=== PATIENT | female | born 1945 | race Caucasian/White ===

== ENCOUNTER → 2017-02-20 | Outpatient (CLI) | payer BC ==
[~2017-02-20] MED LIST: OMEP40CA41 PO; PRED1SUS3 OPR; TRAZ50TA35 PO; TYLOTC500 PO
--- NOTE | 2017-02-21 12:18 | MAMMOGRAPHY REPORT ---
BILATERAL DIGITAL SCREENING MAMMOGRAM WITH CAD: 02/20/2017 CLINICAL HISTORY: Routine screening. Patient has no complaints. TECHNIQUE: Bilateral CC and MLO views were obtained. Current study was also evaluated with a Comput er Aided Detection (CAD) system. COMPARISON: Comparison is made to exams dated: 02/15/2016 mammogram, 02/09/2015 mammogram, 02/03/2014 mammogram, 02/05/2013 ultrasound, 02/05/2013 mammogram, and 01/28/2013 mammogram - [facility]. BREAST COMPOSITION: The tissue of both breasts is heterogeneously dense, which may obscure small ma sses. FINDINGS: There are stable asymmetries bilaterally. No new suspicious mass, architectural distortio n or cluster of microcalcifications is seen. IMPRESSION: ACR BI-RADS CATEGORY 2: BENIGN There is no mammographic evidence of malignancy. A 1 year screening mammogram is recommended. The p atient will receive written notification of the results. Approximately 10% of breast cancers are not detected with mammography. A negative mammographic repor t should not delay biopsy if a clinically suggestive mass is present. Hillary Garcia M.D. ay/:02/20/2017 16:58:11 Systems Qa Analyst: Paris LARSEN(Pablo)([place]), [facility] letter sent: Normal 1/2 BI-RADS Code: ACR BI-RADS Category 2: Benign
== END | disposition home or self-care (01) ==
LOC: C.MAMM 12:16
PROVIDERS: ATTEND Family Medicine
DX: Z12.31 Encounter for screening mammogram for malignant neoplasm of breast (principal)

== ENCOUNTER → 2018-02-19 | Outpatient (CLI) | payer BC, OTHER ==
--- NOTE | 2018-02-20 07:47 | MAMMOGRAPHY REPORT ---
BILATERAL DIGITAL SCREENING MAMMOGRAM TOMOSYNTHESIS WITH CAD: 02/19/2018 CLINICAL HISTORY: Routine screening. TECHNIQUE: Breast tomosynthesis in addition to standard 2D mammography was performed. Current study was also evaluated with a Computer Aided Detection (CAD) system. COMPARISON: Comparison is made to exams dated: 02/20/2017 mammogram, 02/15/2016 mammogram, 02/09/2015 ma mmogram, 02/03/2014 mammogram, 01/28/2013 mammogram, and 01/23/2012 mammogram - [facility]. BREAST COMPOSITION: The tissue of both breasts is heterogeneously dense, which may obscure small mas ses. FINDINGS: Linear scar markers overlie each breast. There are minimal vascular calcifications in the right breast. The glandular pattern is similar to prior mammograms. No new suspicious mass, architec tural distortion or cluster of microcalcifications is seen. IMPRESSION: ACR BI-RADS CATEGORY 2: BENIGN There is no mammographic evidence of malignancy. A 1 year screening mammogram is recommended. The pa tient will receive written notification of the results. Approximately 10% of breast cancers are not detected with mammography. A negative mammographic report should not delay biopsy if a clinically suggestive mass is present. Hillary Garcia M.D. ay/:02/19/2018 15:47:28 Diesel Retrofit Installer: Richard LARSEN(Pablo)([place]), [facility] letter sent: Normal 1/2 BI-RADS Code: ACR BI-RADS Category 2: Benign
== END | disposition home or self-care (01) ==
LOC: C.MAMM 13:41
PROVIDERS: ATTEND Family Medicine
DX: Z12.31 Encounter for screening mammogram for malignant neoplasm of breast (principal)

== ENCOUNTER 2023-06-22 23:14 | Inpatient (IN) ==
--- NOTE | 2023-06-22 23:45 | Emergency Department Note ---
Impression & Plan Acute hyponatremia, Fall, Weakness Admit to the [facility] ED Provider Note NAME: JAMEY ZUNIGA AGE: 77 SEX: F ARRIVES VIA: Walk-In INFORMANT: Patient and her ED PROVIDER(S): Bonnie Reed DO CHIEF COMPLAINT: Fall PLAN: Disposition: Admit to the [facility] Condition: Fair MEDICAL DECISION MAKING: This is a 77-year-old female patient with history of dementia who presents to the emergency department with her after suffering a fall at home. heard the patient fall in her bedroom. Patient complained of discomfort to the left side of her head and her left hip. The explains that she has been getting up to the bathroom more frequently in the past 48 hours and wonders if she has a urinary tract infection. He also describes significant weight loss in the past couple of months. On physical exam, the patient appears to have a droop to her left eye which the states is new. Patient went for CT scan of her brain and cervical spine. These were negative for acute traumatic injuries. Laboratory studies show a normal CBC with no leukocytosis or anemia. Urinalysis showed trace ketones consistent with some mild d ehydration. Chemistry showed hyponatremia with a sodium of 129 and a chloride of 95. Chest x-ray was unremarkable. Patient began to receive IV normal saline bolus. [facility] I felt the patient will require admission to the hospital for sodium replacement and social service evaluation Triage Nursing notes reviewed and agree with them. Additional history obtained from her who is at the bedside Vital Signs: reviewed and remarkable for hypertension and tachycardia Differential diagnosis: UTI, weakness, C-spine injury, head injury ER treatment provided: Cardiac monitoring Twelve-lead EKG IV normal saline bolus Diagnostics interpreted by me: ECG: Normal sinus rhythm at a rate of [address] segment elevation or signs of ischemia. There is no ectopy. QTc was 393 ms. Cardiac Monitoring: Normal sinus rhythm at a rate of 79 Laboratory studies: See below Imaging studies: As per stat rad CT head: See report CT C-spine: See report Chest x-ray: As per my independent interpretation-no acute pulmonary infiltrates or consolidation HPI: 77/F arrives for evaluation of fall. Patient's explains that she has had increased urination over the past couple of days. He was in the kitchen and heard her fall in the bedroom. He believes that she was getting up to go to the bathroom. She complains of pain to the left side of her head, left hip and left knee. The explains that the patient has been more unsteady on her feet over the past 3 days and questions whether or not she may have a urinary tract infection. PAST MEDICAL HISTORY:See Below PAST SURGICAL HISTORY:See Below FAMILY HISTORY:See Below SOCIAL HISTORY:See Below HOME MEDICATIONS:See list ALLERGIES:See list VITALS:See Below PHYSICAL EXAMINATION: HEENT: Head - normocephalic and atraumatic. Pupils are equal, round, and reactive to light. There appears to be a droop to the left eye. Nose - moist nasal mucosa without evidence of trauma or discharge. Mouth - moist buccal mucosa with no trauma to the teeth or signs of malocclusion. Neck: The neck is supple and there is no pain to palpation over the posterior cervical spine and no obvious step-offs or deformities. There is no JVD or tracheal deviation. Chest: There are no signs of deformities, contusions or abrasions to the chest wall. There is no obvious crepitus or paradoxical chest rise. Heart: Regular, rate, and rhythm. There is a normal S1 and S2 with no murmurs, clicks, or gallops appreciated. Lungs: Clear to auscultation bilaterally with no wheezes, rales, or rhonchi. Abdomen: Soft, completely nontender, nondistended, with good bowel sounds. There is no sign of trauma such as contusions, abrasions or penetrations. There are no palpable pulsatile masses or hepatosplenomegaly. There is no guarding, rigidity, or rebound noted. Pelvis: Stable to rock and compression. Patient does have some discomfort over the left ASIS but has range of motion of the left lower extremity and was able to walk without difficulty. Extremities: No obvious trauma, deformities, contusions, or edema. There are easily palpable peripheral pulses. Neuro: The patient is awake and alert and easily able to follow commands. Patient is slow to follow commands and seems demented but this is her baseline. ED COURSE: Times/Reassessments: 2325: Patient was evaluated in room C7. Patient was unable to urinate for nursing staff. Number was placed for continuous cardiac monitoring. The patient was in a normal sinus rhythm at a rate of 98. Laboratory studies were drawn as above. The patient will go for CT scan of the head and cervical spine. She will be catheterized for urine specimen. Bonnie Reed DO Past Med/Surg History Medical History Chronic pain of left knee Chronic SI joint pain GERD (gastroesophageal reflux disease) Hip osteoarthritis Hx of migraine headaches IBS (irritable bowel syndrome) Left hip pain Lumbar compression fracture Lumbar radicular pain Lumbar spondylosis Myofascial pain Osteoarthritis of left knee Osteoporosis Piriformis syndrome of left side Right hip pain Right leg pain Rotator cuff arthropathy Spinal stenosis of lumbar region Surgical History H/O: hysterectomy History of vaginal surgery Social History Smoking Status: Never smoker Second Hand Exposure: No; Do You Dip or Chew Tobacco: No; Tobacco Cessation Education Requested by Patient: No Hx Alcohol Use: Yes Hx Substance Use: No Preferred Language: Mauritanian Communication Ability: Effective Visual Impairment: No Limitations Hearing Ability: Normal Washer [place] Required: No Beliefs That Will Affect Care: None marital status: Current Living Situation: Spouse current occupational status: employed 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 Other Information That Helps Us Care for You: No Feels Safe at Home: Yes Safety Concerns: Feels Safe At This Time Assistive Devices: Walker Allergies Allergies Allergy/AdvReac Type Severity Reaction Status Date / Time codeine AdvReac Intermediate Vomiting Verified 06/22/23 23:52 morphine AdvReac Intermediate Vomiting Verified 06/22/23 23:52 prednisone AdvReac Intermediate Vomiting Verified 06/22/23 23:52 Home Meds Home Medications Medication Instructions Recorded Confirmed calcium carbonate 500 mg calcium 500 mg PO DAILY 11/18/20 06/22/23 (1,250 mg) chewable tablet (Calcium 500) denosumab 60 mg/mL subcutaneous 60 mg subcut DIRECTED 11/18/20 06/22/23 syringe (Prolia) acetaminophen 500 mg tablet 500 mg PO Q6H PRN Pain 12/25/20 06/22/23 (Tylenol Extra Strength) omeprazole 20 mg capsule,delayed 20 mg PO DAILY 12/25/20 06/22/23 release trazodone 50 mg tablet 50 mg PO HS 03/22/23 06/22/23 fluticasone propionate 50 2 spray intranasal DAILY 06/22/23 06/22/23 mcg/actuation nasal spray,suspension lorazepam 0.5 mg tablet 0.5 mg PO BID 06/22/23 06/22/23 polyethylene glycol 3350 17 17 g PO DAILY 06/22/23 06/22/23 gram/dose oral powder (Miralax) sennosides 8.6 mg tablet (Senna 17.2 mg PO BID 06/22/23 06/22/23 Laxative) Results & Data (ED) Vital Signs Vital Signs - 24 hr 06/22/23 23:18 06/23/23 00:05 06/23/23 00:09 Temperature 36.7 C Temperature Source Temporal Artery Scan Pulse Rate 101 H Pulse Rate [Brachial] 76 Pulse Rate from SpO2 Sensor 77 Pulse Rhythm Regular Pulse Rhythm [Brachial] Regular Pulse Strength Normal Pulse Strength [Brachial] Normal Respiratory Rate 18 16 Respiratory Effort / Characteristics Non-Labored Spontaneous Non-Labored Spontaneous Respiratory Depth Normal Normal Respiratory Pattern Regular Regular Blood Pressure 165/94 H Blood Pressure [Right Arm] 155/91 H Blood Pressure Mean 117 Blood Pressure Mean [Right Arm] 112 Blood Pressure Position Sitting Blood Pressure Position [Right Arm] Lying Pulse Oximetry 100 98 97 Oxygen Delivery Method Room Air Room Air Sepsis Recent Fever Within 48 Hours No Sepsis New/Unexplained Change in Mental Status N/A Sepsis Action Taken by Nursing No Action Required 06/23/23 00:10 06/23/23 00:35 06/22/23 23:38 Temperature Temperature Source Pulse Rate 79 Pulse Rate [Brachial] Pulse Rate from SpO2 Sensor 76 Pulse Rhythm Pulse Rhythm [Brachial] Pulse Strength Pulse Strength [Brachial] Respiratory Rate Respiratory Effort / Characteristics Respiratory Depth Respiratory Pattern Blood Pressure Blood Pressure [Right Arm] Blood Pressure Mean Blood Pressure Mean [Right Arm] Blood Pressure Position Blood Pressure Position [Right Arm] Pulse Oximetry 97 Oxygen Delivery Method Room Air Sepsis Recent Fever Within 48 Hours Sepsis New/Unexplained Change in Mental Status Sepsis Action Taken by Nursing Laboratory Data 06/23/23 00:13 06/23/23 00:13 Lab Results 06/23/23 06/23/23 06/23/23 Range/Units 00:13 00:13 00:13 WBC 6.40 (4.8-10.8) K/ul RBC 3.93 L (4.20-5.40) M/uL Hgb 12.7 (12.0-16.0) g/dl Hct 36.4 L (37.0-47.0) % MCV 92.6 (80.0-100.0) fL MCH 32.3 (25.0-34.0) pg MCHC 34.9 (32.0-36.0) g/dL RDW Std Deviation 40.3 (36.4-46.3) fL RDW Coeff of [place] 11.8 (11.5-14.5) % Plt Count 284 (130-400) K/uL MPV 9.5 (9.4-12.4) fL Immature Gran % (Auto) 0.2 % Neut % (Auto) 58.0 % Lymph % (Auto) 27.7 % [place] % (Auto) 11.1 % Eos % (Auto) 2.2 % Baso % (Auto) 0.8 % Neut # (Auto) 3.72 (1.40-6.50) K/uL Lymph # (Auto) 1.77 (1.2-3.4) K/uL [place] # (Auto) 0.71 H (0.11-0.59) K/uL Eos # (Auto) 0.14 (0-0.50) K/uL Baso # (Auto) 0.05 (0-0.2) K/uL Immature Gran # (Auto) 0.01 (0.01-0.20) K/uL Sodium 129 L (136-145) mmol/L Potassium 3.8 (3.5-5.1) mmol/L Chloride 95 L (98-107) mmol/L Carbon Dioxide 26 (21-32) mmol/L Anion Gap 8 (3-11) BUN 12 (6-23) mg/dl Creatinine 0.53 L (0.6-1.2) mg/dl Est Cr Clr Drug Dosing 47.9 ml/min Est GFR ( Amer) 107.6 ml/min Est GFR (Non-Af Amer) 92.9 ml/min BUN/Creatinine Ratio 22.6 H (10-20) Glucose 97 (70-99(Fasting)) mg/dl Calcium 9.7 (8.6-10.3) mg/dl Total Bilirubin 0.5 (0.2-1.0) mg/dl AST 20 (13-39) U/L ALT 12 (7-52) U/L Alkaline Phosphatase 31 L (34-104) U/L Total Protein 7.4 (6.0-8.3) gm/dl Albumin 4.8 (3.4-5.0) gm/dl Globulin 2.6 (2.5-4.0) gm/dl Albumin/Globulin Ratio 1.8 (0.9-2) TSH 2.242 (0.300-4.500) uIu/ml Administered Medications Acetaminophen (Acetaminophen 325 Mg Tab) 650 mg PO Q4H PRN PRN Reason: pain/fever Stop: 07/23/23 04:32 Last Admin: 06/23/23 16:13 Dose: 650 mg Documented By: SHARA Calcium Carbonate (Calcium Carbonate 1250mg Tab) 1,250 mg PO DAILY [facility] Stop: 07/23/23 08:59 Last Admin: 06/24/23 08:08 Dose: 1,250 mg Documented By: Admin: 06/23/23 08:45 Dose: 1,250 mg Documented By: SHARA Fluticasone Propionate (Fluticasone Propionate Na Spr 16 Gm Btl) 2 sprays NA DAILY VEL Stop: 07/23/23 08:59 Last Admin: 06/24/23 08:08 Dose: 2 sprays Documented By: Admin: 06/23/23 08:45 Dose: 2 sprays Documented By: SHARA Heparin Sodium (Porcine) (Heparin Sod 5,000 Unit/0.5 Ml Vial) 5,000 units SQ Q12 VEL Stop: 07/23/23 08:59 Last Admin: 06/24/23 08:09 Dose: 5,000 units Documented By: Admin: 06/23/23 20:20 Dose: 5,000 units Documented By: Admin: 06/23/23 08:50 Dose: Not Given Documented By: SHARA Sodium Chloride (Nss 1000ml) 1,000 mls @ 75 mls/hr IV .[id number] VEL Stop: 07/23/23 04:32 Last Admin: 06/24/23 08:13 Dose: 75 mls/hr Documented By: Infusion: 06/24/23 08:13 Dose: 75 mls/hr Documented By: Admin: 08/04/23 20:18 Dose: 75 mls/hr Documented By: Infusion: 06/23/23 18:21 Dose: 75 mls/hr Documented By: Infusion: 06/23/23 13:49 Dose: 75 mls/hr Documented By: Admin: 06/23/23 05:01 Dose: 75 mls/hr Documented By: SUSAN Lorazepam (Lorazepam 0.5 Mg Tab) 0.5 mg PO BID VEL Stop: 07/23/23 08:59 Last Admin: 06/24/23 08:12 Dose: 0.5 mg Documented By: Admin: 06/23/23 20:19 Dose: 0.5 mg Documented By: Admin: 06/23/23 08:44 Dose: 0.5 mg Documented By: SHARA Pantoprazole Sodium (Pantoprazole 40 Mg Tab) 40 mg PO DAILY VEL Stop: 07/23/23 08:59 Last Admin: 06/24/23 08:08 Dose: 40 mg Documented By: Admin: 06/23/23 08:44 Dose: 40 mg Documented By: SHARA Polyethylene Glycol (Polyethylene (Miralax) 17 Gm Pack) 17 gm PO DAILY VEL Stop: 07/23/23 08:59 Last Admin: 06/24/23 08:08 Dose: 17 gm Documented By: Admin: 06/23/23 08:50 Dose: Not Given Documented By: SHARA Sennosides (Senna 8.6 Mg Tab) 17.2 mg PO BID VEL Stop: 07/23/23 08:59 Last Admin: 06/24/23 08:09 Dose: Not Given Documented By: Admin: 06/23/23 20:19 Dose: 17.2 mg Documented By: Admin: 06/23/23 08:44 Dose: 17.2 mg Documented By: SHARA Sodium Chloride (Sodium Chloride 1 Gm Tablet) 1 gm PO BID VEL Stop: 07/23/23 20:59 Last Admin: 06/24/23 08:08 Dose: 1 gm Documented By: Admin: 06/23/23 20:38 Dose: 1 gm Documented By: LARISSA Trazodone HCl (Trazodone Hcl 50 Mg Tab) 50 mg PO HS VEL Stop: 07/23/23 20:59 Last Admin: 06/23/23 20:19 Dose: 50 mg Documented By: LARISSA Discontinued Medications Sodium Chloride (Nss) 500 mls @ 999 mls/hr IV .Q31M ONE Stop: 06/23/23 01:28 Last Infusion: 06/23/23 02:45 Dose: 0 mls/hr Documented By: Admin: 06/23/23 01:35 Dose: 999 mls/hr Documented By: ROZ Sodium Chloride (Nss) 500 mls @ 125 mls/hr IV .Q4H VEL Stop: 07/23/23 00:59 Last Infusion: 06/23/23 13:50 Dose: 0 mls/hr Documented By: Admin: 06/23/23 02:15 Dose: 125 mls/hr Documented By: ROZ Ioversol (Optiray 320 100ml) 92 ml IV ONCE ONE Stop: 06/23/23 04:20 Last Admin: 06/23/23 04:21 Dose: 92 ml Documented By: ANA Discharge Plan Visit Data Chief Complaint: Hip Pain Stated Complaint: FALL, HIP, HEAD PAIN ED Provider: Bonnie Reed Discharge Problem: Acute hyponatremia, Fall, Weakness Patient Disposition: Admitted As Inpatient Discharge Instructions Interventions: ED Discharge Assessment Last Done: 06/23/23 04:02
[2023-06-23 00:28] LABS: Basophils # (auto) 0.05 K/uL (0-0.2); Basophils % (auto) 0.8 %; Eosinophils # (auto) 0.14 K/uL (0-0.50); Eosinophils % (auto) 2.2 %; Hematocrit (blood only) 36.4 % (37.0-47.0); Hemoglobin 12.7 g/dl (12.0-16.0); Immature Granulocytes # (auto) 0.01 K/uL (0.01-0.20); Immature Granulocytes % (auto) 0.2 %; Lymphocytes # (auto) 1.77 K/uL (1.2-3.4); Lymphocytes % (auto) 27.7 %; Mean Corpuscular Hemoglobin 32.3 pg (25.0-34.0); Mean Corpuscular Hgb Conc 34.9 g/dL (32.0-36.0); Mean Corpuscular Volume 92.6 fL (80.0-100.0); Mean Platelet Volume 9.5 fL (9.4-12.4); Monocytes # (auto) 0.71 K/uL (0.11-0.59); Monocytes % (auto) 11.1 %; Neutrophils # (auto) 3.72 K/uL (1.40-6.50); Platelet Count 284 K/uL (130-400); RDW Coefficient of Variation 11.8 % (11.5-14.5); RDW Standard Deviation 40.3 fL (36.4-46.3); Red Blood Count 3.93 M/uL (4.20-5.40)
[2023-06-23 00:45] LABS: Albumin Globulin Ratio 1.8 (0.9-2); Albumin Level 4.8 gm/dl (3.4-5.0); BUN Creatinine Ratio 22.6 (10-20); Bilirubin,Total 0.5 mg/dl (0.2-1.0); Calcium 9.7 mg/dl (8.6-10.3); Creatinine Clr Calc Pharmacy 47.9 ml/min; Est GFR (African American) 107.6 ml/min; Est GFR (Non-African American) 92.9 ml/min; Globulin 2.6 gm/dl (2.5-4.0); Potassium 3.8 mmol/L (3.5-5.1); Total Protein 7.4 gm/dl (6.0-8.3)
[2023-06-23] MEDS ORDERED: SODIUM CHLORIDE 0.9% 500 ML IV ONE (00:58)
[2023-06-23 00:59] LABS: Appearance Urine Clear (Clear); Bilirubin Urine Negative (Negative); Blood Urine Negative (Negative); Color Urine Yellow; Glucose Urine UA Negative (Negative); Ketones Urine Trace (Negative); Leukocyte Esterase Urine Negative (Negative); Nitrite Urine Negative (Negative); Protein Urine Negative (Negative); Specific Gravity Urine 1.013 (1.000-1.030); Urobilinogen Urine Negative (Negative); pH Urine 7.5 (4.5-7.5)
[2023-06-23] MEDS ORDERED: SODIUM CHLORIDE 0.9% 500 ML IV SCH (01:00)
--- NOTE | 2023-06-23 01:25 | CT Scan Report ---
Exam(s): CT HEAD Without Contrast EXAM: CT Head Without Intravenous Contrast CLINICAL HISTORY: Reason for exam: fall. TECHNIQUE: Axial computed tomography images of the head/brain without intravenous contrast. CTDI is 37.42 mGy and DLP is 1035.33 mGy-cm. Automated exposure control was utilized for the study. A dose lowering technique was utilized adhering to the principles of ALARA. COMPARISON: 09/26/2015. FINDINGS: Brain: Mild generalized brain atrophy. Areas of slight decreased attenuation within the deep white matter suggestive of mild microangiopathic white matter disease. No hemorrhage. Ventricles: Unremarkable. No ventriculomegaly. Bones/joints: Unremarkable. No acute fracture. Soft tissues: Unremarkable. Sinuses: Unremarkable as visualized. No acute sinusitis. Mastoid air cells: Unremarkable as visualized. No mastoid effusion. IMPRESSION: 1. Chronic changes as described. No acute intracranial hemorrhage or space-occupying lesion. 2. No skull fracture. Electronically signed by: Stefanie Lofton MD 06/23/23 01:24 AM
--- NOTE | 2023-06-23 01:27 | CT Scan Report ---
Exam(s): CT C SPINE EXAM: CT Cervical Spine Without Intravenous Contrast CLINICAL HISTORY: Reason for exam: fall. TECHNIQUE: Axial computed tomography images of the cervical spine without intravenous contrast. Automated exposure control was utilized for the study. A dose lowering technique was utilized adhering to the principles of ALARA. COMPARISON: None. FINDINGS: Vertebrae: Multilevel endplate spondylosis with narrowing of disc height, more severe from C3-C7. Normal vertebral body height with no acute fracture. Normal alignment. Discs/spinal canal/neural foramina: Degenerative arthrosis at the anterior C1-C2 articulation. Multilevel bilateral apophyseal hypertrophy contributing to variable degrees of neuroforaminal encroachment. No central canal stenosis. Soft tissues: Unremarkable. Pleural space: Lung apices revealed biapical pleural thickening with subpleural scarring. IMPRESSION: Multilevel degenerative disease as described with no acute fracture or subluxation. Electronically signed by: Stefanie Lofton MD 06/23/23 01:26 AM
--- NOTE | 2023-06-23 03:02 | History & Physical Report ---
Date of Service June 23, 2023 Assessment & Plan (1) Fall: Plan: 77-year-old female past medical significant for moderate dementia as per , GERD, irritable bowel syndrome with constipation and diarrhea, stress incontinence, senile osteoporosis, migraine variant, tympanosclerosis who lives at home with ambulates with a walker and eats regular food as per was brought in because of fall. Fall Probable weakness from hyponatremia and malnutrition PT OT Hyponatremia Sodium 129 Getting gentle fluids we will follow repeat labs in a.m. Malnutrition We will get nutrition consult Persistent abdominal pain History of-year-old bowel syndrome with constipation and diarrhea Has been states mostly she has constipation We will get CT abdomen pelvis Dementia Monitor for delirium GERD On omeprazole DVT prophylaxis Heparin subcu Disposition medical floor CODE STATUS full code only if there is real chance of recovery as per History of Present Illness Chief Complaint: Fall, hyponatremia Primary Care Provider: Michelle Mcdowell, 77-year-old female past medical significant for moderate dementia as per , GERD, irritable bowel syndrome with constipation and diarrhea, stress incontinence, senile osteoporosis, migraine variant, tympanosclerosis who lives at home with ambulates with a walker and eats regular food as per was brought in because of fall. heard patient fell in the kitchen seems hit her head but no loss of consciousness. In the ER imaging studies are okay but labs showed sodium of 129. As per patient has poor appetite and she is losing weight and she lost over 14 pounds in last 6 months. She has a constant abdominal pain. Constipated most of the times and sometimes has to use [employer]. Has been requesting CT scan of abdomen to check for any blockages. No recent fevers, no cough, no headaches. No chest pain or shortness of breath. Has some nausea. Has chronic back pain and hip pains. states she has sundowning and gets confusion and sometimes agitated in the night. was worried about UTI for the fall today but UA came back negative . Allergies Allergy/AdvReac Type Severity Reaction Status Date / Time codeine AdvReac Intermediate Vomiting Verified 06/22/23 23:52 morphine AdvReac Intermediate Vomiting Verified 06/22/23 23:52 prednisone AdvReac Intermediate Vomiting Verified 06/22/23 23:52 Home Medications Medication Instructions Recorded Confirmed Type calcium carbonate 500 mg calcium 500 mg PO DAILY 11/18/20 06/22/23 History (1,250 mg) chewable tablet (Calcium 500) denosumab 60 mg/mL subcutaneous 60 mg subcut DIRECTED 11/18/20 06/22/23 History syringe (Prolia) acetaminophen 500 mg tablet 500 mg PO Q6H PRN Pain 12/25/20 06/22/23 History (Tylenol Extra Strength) omeprazole 20 mg capsule,delayed 20 mg PO DAILY 12/25/20 06/22/23 History release trazodone 50 mg tablet 50 mg PO HS 03/22/23 06/22/23 History fluticasone propionate 50 2 spray intranasal DAILY 06/22/23 06/22/23 History mcg/actuation nasal spray,suspension lorazepam 0.5 mg tablet 0.5 mg PO BID 06/22/23 06/22/23 History polyethylene glycol 3350 17 17 g PO DAILY 06/22/23 06/22/23 History gram/dose oral powder (Miralax) sennosides 8.6 mg tablet (Senna 17.2 mg PO BID 06/22/23 06/22/23 History Laxative) Past Med/Surg History Medical History Chronic pain of left knee Chronic SI joint pain GERD (gastroesophageal reflux disease) Hip osteoarthritis Hx of migraine headaches IBS (irritable bowel syndrome) Left hip pain Lumbar compression fracture Lumbar radicular pain Lumbar spondylosis Myofascial pain Osteoarthritis of left knee Osteoporosis Piriformis syndrome of left side Right hip pain Right leg pain Rotator cuff arthropathy Spinal stenosis of lumbar region Surgical History H/O: hysterectomy History of vaginal surgery Social History Smoking Status: Never smoker Preferred Language: Brazilian Visual Impairment: No Limitations Hearing Ability: Normal Beliefs That Will Affect Care: None marital status: Current Living Situation: Spouse current occupational status: employed 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 Feels Safe at Home: Yes Review of Systems Review of Systems: Unobtainable due to cognitive status Physical Exam Physical Exam: General- Not in distress, Cachectic Head- atraumatic Eyes- PERRLA ENT- oropharynx clear Neck- supple, no JVD, Lungs- clear to auscultation and percussion Heart- regular rhythm; no murmur, no gallop, no rub appreciated Abdomen- normal bowel sounds, soft, diffuse tender no distension Extremities- no pretibial edema, no erythema Neuro- alert, oriented x 2; PERRL, no facial palsy; no dysarthria;obeys simple commands, moves extremities Skin- warm & dry Results & Data Results & Data Vital Signs (Past 12 Hours) Vital Signs Temp Pulse Pulse Resp BP BP Pulse Ox 06/22/23 23:38 06/23/23 00:35 79 06/23/23 00:10 97 06/23/23 00:09 97 06/23/23 00:05 76 16 155/91 H 98 06/22/23 23:18 36.7 C 101 H 18 165/94 H 100 O2 Del Method 06/22/23 23:38 Room Air 06/23/23 00:35 06/23/23 00:10 06/23/23 00:09 06/23/23 00:05 Room Air 06/22/23 23:18 Room Air Diagnostic Findings Laboratory Results WBC 6.40 K/ul (4.8-10.8) 06/23/23 00:13 RBC 3.93 M/uL (4.20-5.40) L 06/23/23 00:13 Hgb 12.7 g/dl (12.0-16.0) 06/23/23 00:13 Hct 36.4 % (37.0-47.0) L 06/23/23 00:13 MCV 92.6 fL (80.0-100.0) 06/23/23 00:13 MCH 32.3 pg (25.0-34.0) 06/23/23 00:13 MCHC 34.9 g/dL (32.0-36.0) 06/23/23 00:13 RDW Std Deviation 40.3 fL (36.4-46.3) 06/23/23 00:13 RDW Coeff of [place] 11.8 % (11.5-14.5) 06/23/23 00:13 Plt Count 284 K/uL (130-400) 06/23/23 00:13 MPV 9.5 fL (9.4-12.4) 06/23/23 00:13 Immature Gran % (Auto) 0.2 % 06/23/23 00:13 Neut % (Auto) 58.0 % 06/23/23 00:13 Lymph % (Auto) 27.7 % 06/23/23 00:13 Sac % (Auto) 11.1 % 06/23/23 00:13 Eos % (Auto) 2.2 % 06/23/23 00:13 Baso % (Auto) 0.8 % 06/23/23 00:13 Neut # (Auto) 3.72 K/uL (1.40-6.50) 06/23/23 00:13 Lymph # (Auto) 1.77 K/uL (1.2-3.4) 06/23/23 00:13 Sac # (Auto) 0.71 K/uL (0.11-0.59) H 06/23/23 00:13 Eos # (Auto) 0.14 K/uL (0-0.50) 06/23/23 00:13 Baso # (Auto) 0.05 K/uL (0-0.2) 06/23/23 00:13 Immature Gran # (Auto) 0.01 K/uL (0.01-0.20) 06/23/23 00:13 Sodium 129 mmol/L (136-145) L 06/23/23 00:13 Potassium 3.8 mmol/L (3.5-5.1) 06/23/23 00:13 Chloride 95 mmol/L (98-107) L 06/23/23 00:13 Carbon Dioxide 26 mmol/L (21-32) 06/23/23 00:13 Anion Gap 8 (3-11) 06/23/23 00:13 BUN 12 mg/dl (6-23) 06/23/23 00:13 Creatinine 0.53 mg/dl (0.6-1.2) L 06/23/23 00:13 Est Cr Clr Drug Dosing 47.9 ml/min 06/23/23 00:13 Est GFR ( Amer) 107.6 ml/min 06/23/23 00:13 Est GFR (Non-Af Amer) 92.9 ml/min 06/23/23 00:13 BUN/Creatinine Ratio 22.6 (10-20) H 06/23/23 00:13 Glucose 97 mg/dl (70-99(Fasting)) 06/23/23 00:13 Calcium 9.7 mg/dl (8.6-10.3) 06/23/23 00:13 Total Bilirubin 0.5 mg/dl (0.2-1.0) 06/23/23 00:13 AST 20 U/L (13-39) 06/23/23 00:13 ALT 12 U/L (7-52) 06/23/23 00:13 Alkaline Phosphatase 31 U/L (34-104) L 06/23/23 00:13 Total Protein 7.4 gm/dl (6.0-8.3) 06/23/23 00:13 Albumin 4.8 gm/dl (3.4-5.0) 06/23/23 00:13 Globulin 2.6 gm/dl (2.5-4.0) 06/23/23 00:13 Albumin/Globulin Ratio 1.8 (0.9-2) 06/23/23 00:13 TSH 2.242 uIu/ml (0.300-4.500) 06/23/23 00:13 Urine Color Yellow 06/23/23 Unknown Urine Appearance Clear (Clear) 06/23/23 Unknown Urine pH 7.5 (4.5-7.5) 06/23/23 Unknown Ur Specific [place] 1.013 (1.000-1.030) 06/23/23 Unknown Urine Protein Negative (Negative) 06/23/23 Unknown Urine Glucose (UA) Negative (Negative) 06/23/23 Unknown Urine Ketones Trace (Negative) H 06/23/23 Unknown Urine Blood Negative (Negative) 06/23/23 Unknown Urine Nitrite Negative (Negative) 06/23/23 Unknown Urine Bilirubin Negative (Negative) 06/23/23 Unknown Urine Urobilinogen Negative (Negative) 06/23/23 Unknown Ur Leukocyte Esterase Negative (Negative) 06/23/23 Unknown Impressions Cervical Spine CT 06/22/23 23:38 Exam(s): CT C SPINE EXAM: CT Cervical Spine Without Intravenous Contrast CLINICAL HISTORY: Reason for exam: fall. TECHNIQUE: Axial computed tomography images of the cervical spine without intravenous contrast. Automated exposure control was utilized for the study. A dose lowering technique was utilized adhering to the principles of ALARA. COMPARISON: None. FINDINGS: Vertebrae: Multilevel endplate spondylosis with narrowing of disc height, more severe from C3-C7. Normal vertebral body height with no acute fracture. Normal alignment. Discs/spinal canal/neural foramina: Degenerative arthrosis at the anterior C1-C2 articulation. Multilevel bilateral apophyseal hypertrophy contributing to variable degrees of neuroforaminal encroachment. No central canal stenosis. Soft tissues: Unremarkable. Pleural space: Lung apices revealed biapical pleural thickening with subpleural scarring. IMPRESSION: Multilevel degenerative disease as described with no acute fracture or subluxation. Electronically signed by: Stefanie Lofton MD 06/23/23 01:[address] 06/22/23 23:38 Exam(s): CT HEAD Without Contrast EXAM: CT Head Without Intravenous Contrast CLINICAL HISTORY: Reason for exam: fall. TECHNIQUE: Axial computed tomography images of the head/brain without intravenous contrast. CTDI is 37.42 mGy and DLP is 1035.33 mGy-cm. Automated exposure control was utilized for the study. A dose lowering technique was utilized adhering to the principles of ALARA. COMPARISON: 09/26/2015. FINDINGS: Brain: Mild generalized brain atrophy. Areas of slight decreased attenuation within the deep white matter suggestive of mild microangiopathic white matter disease. No hemorrhage. Ventricles: Unremarkable. No ventriculomegaly. Bones/joints: Unremarkable. No acute fracture. Soft tissues: Unremarkable. Sinuses: Unremarkable as visualized. No acute sinusitis. Mastoid air cells: Unremarkable as visualized. No mastoid effusion. IMPRESSION: 1. Chronic changes as described. No acute intracranial hemorrhage or space-occupying lesion. 2. No skull fracture. Electronically signed by: Stefanie Lofton MD 06/23/23 01:24 AM ECG Additional Comments: ECG normal sinus rhythm rate of 76. T wave inversions in lead III Code Status & VTE Plan VTE Prophylaxis Plan VTE Prophylaxis will be ordered: Yes
[2023-06-23] MEDS ORDERED: OPTIRAY 320 100ml IV ONE (04:19)
[2023-06-23] MEDS ORDERED: POLYETHYLENE (MIRALAX) 17 GM PACK PO PRN (04:33)
[2023-06-23] MEDS: SODIUM CHLORIDE 0.9% 1000ML 1,000 ML IV SCH ×2 (05:01→20:18)
--- NOTE | 2023-06-23 06:16 | CT Scan Report ---
CT OF THE ABDOMEN AND PELVIS WITH CONTRAST CLINICAL HISTORY: Persistent abdominal pain and constipation. COMPARISON STUDY: CT of the pelvis October 23, 2022. TECHNIQUE: Following IV administration of 92 mL of Optiray, axial images of the abdomen and pelvis we re obtained from the lung bases to the proximal femurs. Images were reviewed in the axial, sagittal, and coronal planes. IV contrast was administered without complication. Automated exposure control wa s utilized for the study. A dose lowering technique was utilized adhering to the principles of ALARA . CT DOSE: 274.73 mGy.cm FINDINGS: Calcified granuloma within the right lower lobe is present. No pneumatosis, free air or por nelly venous gas is present. Subcentimeter segment 7 hepatic lesion favors a cyst. This is unchanged. T here are no suspicious hepatic lesions. There is no biliary or pancreatic ductal dilatation. Spleen, adrenal glands and pancreas are unremarkable. Moderate right hydronephrosis is similar to CT October 23, 2022. Punctate layering calcifications within the right renal pelvis are present. No ureteral dinorah culi are identified. There is mild left collecting system dilatation. There is no evidence for a umberto l obstruction. There is no ascites. No lymphadenopathy. No fluid collections are present. Old mild L2 compression fracture is present. Multilevel degenerative changes are unchanged within the lumbar spi ne since prior CT. No acute fractures are identified. The appendix is not visualized. The amount of s tool is within normal limits. IMPRESSION: 1. No bowel obstruction. No bowel wall thickening. Amount of stool within normal limits. 2. No change in moderate right hydronephrosis since prior CT. 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 Punctate layering calcifications within the right renal pelvis. No obstructing calculi. 3. Mild left collecting system dilatation. ACT 112: Negative or not required by law. Electronically signed by: Jaylon Donald M.D. 06/23/2023 6:14 AM
--- NOTE | 2023-06-23 06:57 | XRay Report ---
XR chest 1V portable CLINICAL HISTORY: weakness COMPARISON STUDY: Chest CT and chest radiograph March 31, 2007. FINDINGS: Lung volumes are normal. There is no consolidation to suggest pneumonia. Biapical opacities favor scarring. There is no pneumothorax or pleural effusion. Cardiac size is normal. Mediastinal co ntours are normal. There is no evidence for pulmonary edema. IMPRESSION: No acute cardiopulmonary findings. ACT 112: Negative or not required by law. Electronically signed by: Jaylon Donald M.D. 06/23/2023 6:56 AM
[2023-06-23 07:24] LABS: Basophils # (auto) 0.07 K/uL (0-0.2); Eosinophils # (auto) 0.08 K/uL (0-0.50); Eosinophils % (auto) 1.2 %; Hematocrit (blood only) 38.4 % (37.0-47.0); Hemoglobin 13.5 g/dl (12.0-16.0); Immature Granulocytes # (auto) 0.01 K/uL (0.01-0.20); Immature Granulocytes % (auto) 0.1 %; Lymphocytes # (auto) 1.74 K/uL (1.2-3.4); Lymphocytes % (auto) 25.4 %; Mean Corpuscular Hemoglobin 31.7 pg (25.0-34.0); Mean Corpuscular Hgb Conc 35.2 g/dL (32.0-36.0); Mean Corpuscular Volume 90.1 fL (80.0-100.0); Monocytes # (auto) 0.63 K/uL (0.11-0.59); Monocytes % (auto) 9.2 %; Neutrophils # (auto) 4.33 K/uL (1.40-6.50); Neutrophils % (auto) 63.1 %; Platelet Count 295 K/uL (130-400); RDW Coefficient of Variation 11.8 % (11.5-14.5); RDW Standard Deviation 38.8 fL (36.4-46.3); Red Blood Count 4.26 M/uL (4.20-5.40); White Blood Count 6.86 K/ul (4.8-10.8)
[2023-06-23 07:35] LABS: Calcium 8.9 mg/dl (8.6-10.3); Magnesium 1.8 mg/dl (1.7-2.4); Potassium 3.5 mmol/L (3.5-5.1)
[2023-06-23 07:41] LABS: BUN Creatinine Ratio 16.7 (10-20); Creatinine Clr Calc Pharmacy 66.3 ml/min; Est GFR (African American) 116.2 ml/min; Est GFR (Non-African American) 100.3 ml/min
[2023-06-23] MEDS: PANTOprazole 40 MG TAB PO SCH (08:44)
[2023-06-23] MEDS: SENNA 8.6 MG TAB PO SCH ×2 (08:44→20:19)
[2023-06-23] MEDS: LORazepam 0.5 MG TAB PO SCH ×2 (08:44→20:19)
[2023-06-23] MEDS: CALCIUM CARBONATE 1250MG TAB PO SCH (08:45)
[2023-06-23] MEDS: FLUTICASONE PROPIONATE NA SPR 16 GM BTL SCH (08:45)
[2023-06-23] MEDS: POLYETHYLENE (MIRALAX) 17 GM PACK PO SCH (08:50)
[2023-06-23] MEDS: HEPARIN SOD 5,000 UNIT/0.5 ML VIAL SQ SCH ×2 (08:50→20:20)
[2023-06-23] MEDS: ACETAMINOPHEN 325 MG TAB PO PRN (16:13)
--- NOTE | 2023-06-23 16:50 | Hospitalist Progress Note ---
Date of Service June 23, 2023 Assessment & Plan (1) Fall: Plan: 77-year-old female past medical significant for moderate dementia as per , GERD, irritable bowel syndrome with constipation and diarrhea, stress incontinence, senile osteoporosis, migraine variant, tympanosclerosis who lives at home with ambulates with a walker and eats regular food as per was brought in because of fall. Fall Probable weakness from hyponatremia and malnutrition PT OT Hyponatremia-likely secondary to poor intake Sodium 129 Getting gentle fluids we will follow repeat labs in a.m. Remains hyponatremic with sodium level of 129 Has been getting small doses of IV fluid with normal saline Will give sodium tablet Malnutrition We will get nutrition consult Persistent abdominal pain History of-year-old bowel syndrome with constipation and diarrhea Has been states mostly she has constipation We will get CT abdomen pelvis-mild collecting system dilatation with moderate right hydronephrosis as before No acute pain Dementia Monitor for delirium Pleasantly confused but no acute delirium GERD On omeprazole DVT prophylaxis Heparin subcu Disposition medical floor CODE STATUS full code only if there is real chance of recovery as per Admission and Anticipated Discharge Date Admission Date: June 23, 2023 Subjective 06/23/2023 The patient was seen and examined in medical floor She remains pleasantly confused Does not have any acute distress at rest and denies any significant symptoms Review of Systems Review of Systems: Unobtainable due to cognitive status Physical Exam Physical Exam: Sitting on a chair without any acute distress Constitutional: + ill appearing and average body habitus Eyes: PERRL, conjunctivae normal, anicteric sclerae ENMT: external ear and nose normal, oropharynx normal Neck: trachea midline, no thyromegaly Respiratory: no respiratory distress Auscultation: lungs clear to auscultation bilaterally Cardiovascular: Rate/Rhythm: regular rate and regular rhythm; not tachycardic Heart Sounds: normal S1, normal S2 and + murmur Extremities: no edema Gastrointestinal (Abdomen): Inspection/Auscultation: normal bowel sounds; abdomen not distended Percussion/Palpation: abdomen soft; abdomen nontender Musculoskeletal: No acute arthritis in any joint Neurologic: Alert and awake. Pleasantly confused. No focal neurodeficit Lymphatic: no cervical or axillary lymphadenopathy Results & Data Results & Data Vital Signs (Past 12 Hours) Vital Signs Temp Pulse Resp BP Pulse Ox O2 Del Method 06/23/23 15:16 36.7 C 97 H 18 143/98 H 97 Room Air 06/23/23 07:31 37.1 C 97 H 18 169/97 H 97 Room Air Laboratory Results Short CBC 06/23/23 06/23/23 Range/Units 00:13 07:09 WBC 6.40 6.86 (4.8-10.8) K/ul Hgb 12.7 13.5 (12.0-16.0) g/dl Hct 36.4 L 38.4 (37.0-47.0) % Plt Count 284 295 (130-400) K/uL BMP 06/23/23 06/23/23 00:13 07:09 Sodium 129 L 129 L Potassium 3.8 3.5 Chloride 95 L 98 Carbon Dioxide 26 22 BUN 12 7 Creatinine 0.53 L 0.42 L Glucose 97 106 H Calcium 9.7 8.9 Liver Function 06/23/23 Range/Units 00:13 Total Bilirubin 0.5 (0.2-1.0) mg/dl AST 20 (13-39) U/L ALT 12 (7-52) U/L Alkaline Phosphatase 31 L (34-104) U/L Albumin 4.8 (3.4-5.0) gm/dl Urine 06/23/23 Range/Units Unknown Urine Color Yellow Urine Appearance Clear (Clear) Urine pH 7.5 (4.5-7.5) Ur Specific [place] 1.013 (1.000-1.030) Urine Protein Negative (Negative) Urine Glucose (UA) Negative (Negative) Medications Administered Current Inpatient Medications Acetaminophen (Acetaminophen 325 Mg Tab) 650 mg PO Q4H PRN PRN Reason: pain/fever Stop: 07/23/23 04:32 Last Admin: 06/23/23 16:13 Dose: 650 mg Calcium Carbonate (Calcium Carbonate 1250mg Tab) 1,250 mg PO DAILY VEL Stop: 07/23/23 08:59 Last Admin: 06/23/23 08:45 Dose: 1,250 mg Fluticasone Propionate (Fluticasone Propionate Na Spr 16 Gm Btl) 2 sprays NA DAILY VEL Stop: 07/23/23 08:59 Last Admin: 06/23/23 08:45 Dose: 2 sprays Heparin Sodium (Porcine) (Heparin Sod 5,000 Unit/0.5 Ml Vial) 5,000 units SQ Q12 VEL Stop: 07/23/23 08:59 Last Admin: 06/23/23 08:50 Dose: Not Given Sodium Chloride (Nss 1000ml) 1,000 mls @ 75 mls/hr IV .[id number] VEL Stop: 07/23/23 04:32 Last Infusion: 06/23/23 13:49 Dose: 75 mls/hr Lorazepam (Lorazepam 0.5 Mg Tab) 0.5 mg PO BID VEL Stop: 07/23/23 08:59 Last Admin: 06/23/23 08:44 Dose: 0.5 mg Pantoprazole Sodium (Pantoprazole 40 Mg Tab) 40 mg PO DAILY VEL Stop: 07/23/23 08:59 Last Admin: 06/23/23 08:44 Dose: 40 mg Polyethylene Glycol (Polyethylene (Miralax) 17 Gm Pack) 17 gm PO DAILY PRN PRN Reason: Constipation Stop: 07/23/23 04:32 Polyethylene Glycol (Polyethylene (Miralax) 17 Gm Pack) 17 gm PO DAILY VEL Stop: 07/23/23 08:59 Last Admin: 06/23/23 08:50 Dose: Not Given Sennosides (Senna 8.6 Mg Tab) 17.2 mg PO BID VEL Stop: 07/23/23 08:59 Last Admin: 06/23/23 08:44 Dose: 17.2 mg Trazodone HCl (Trazodone Hcl 50 Mg Tab) 50 mg PO HS VEL Stop: 07/23/23 20:59
[2023-06-23] MEDS: traZODone HCL 50 MG TAB PO SCH (20:19)
[2023-06-23] MEDS: SODIUM CHLORIDE 1 GM TABLET PO SCH (20:38)
--- NOTE | 2023-06-23 23:21 | Electrocardiogram Report ---
Test Reason : Blood Pressure : / mmHG Vent. Rate : 076 BPM Atrial Rate : 076 BPM P-R Int : 162 ms QRS Dur : 070 ms QT Int : 350 ms P-R-T Axes : 030 010 001 degrees QTc Int : 393 ms Normal sinus rhythm Minimal voltage criteria for LVH, may be normal variant Borderline ECG When compared with ECG of 16-JUL-2009 13:38, Questionable change in QRS axis T wave inversion now evident in Inferior leads Confirmed by Odilon Gruber ([id number]) on 06/23/2023 11:21:08 PM Referred By: REFERRED SELF Confirmed By:Odilon Gruber
[2023-06-24 07:28] LABS: BUN Creatinine Ratio 16.2 (10-20); Calcium 8.9 mg/dl (8.6-10.3); Creatinine Clr Calc Pharmacy 75.3 ml/min; Est GFR (African American) 121.2 ml/min; Est GFR (Non-African American) 104.5 ml/min; Potassium 3.5 mmol/L (3.5-5.1)
[2023-06-24] MEDS: POLYETHYLENE (MIRALAX) 17 GM PACK PO SCH (08:08)
[2023-06-24] MEDS: PANTOprazole 40 MG TAB PO SCH (08:08)
[2023-06-24] MEDS: FLUTICASONE PROPIONATE NA SPR 16 GM BTL SCH (08:08)
[2023-06-24] MEDS: SODIUM CHLORIDE 1 GM TABLET PO SCH ×2 (08:08→20:20)
[2023-06-24] MEDS: CALCIUM CARBONATE 1250MG TAB PO SCH (08:08)
[2023-06-24] MEDS: SENNA 8.6 MG TAB PO SCH ×2 (08:09→20:20)
[2023-06-24] MEDS: HEPARIN SOD 5,000 UNIT/0.5 ML VIAL SQ SCH ×2 (08:09→20:20)
[2023-06-24] MEDS: LORazepam 0.5 MG TAB PO SCH ×2 (08:12→20:19)
[2023-06-24] MEDS: SODIUM CHLORIDE 0.9% 1000ML 1,000 ML IV SCH ×2 (08:13→23:45)
--- NOTE | 2023-06-24 12:49 | Hospitalist Progress Note ---
Date of Service June 24, 2023 Assessment & Plan (1) Fall: Plan: 77-year-old female past medical significant for moderate dementia as per , GERD, irritable bowel syndrome with constipation and diarrhea, stress incontinence, senile osteoporosis, migraine variant, tympanosclerosis who lives at home with ambulates with a walker and eats regular food as per was brought in because of fall. Fall Probable weakness from hyponatremia and malnutrition Continue PT & OT Hyponatremia-likely secondary to poor intake and drinking too much water for the last few days or weeks as per the Has been drinking much water for the last few days at home Sodium 129 on admission Remains hyponatremic with sodium level of 129 Has been getting small doses of IV fluid with normal saline Will give sodium tablet Sodium level remains low at 126 We will monitor PRP if is still low we will get nephrology involved and the patient may need Lasix with normal saline infusion Severe malnutritionin the setting of multiple chronic illnesses (dementia, IBS, diarrhea) We will get nutrition consult Has been eating and drinking reasonably in the hospital Persistent abdominal pain History of-year-old bowel syndrome with constipation and diarrhea Has been states mostly she has constipation We will get CT abdomen pelvis-mild collecting system dilatation with moderate right hydronephrosis as before No acute pain Dementia Monitor for delirium Pleasantly confused but no acute delirium GERD On omeprazole DVT prophylaxis Heparin subcu Disposition medical floor CODE STATUS full code only if there is real chance of recovery as per Discussed with the in detail Admission and Anticipated Discharge Date Admission Date: June 23, 2023 Subjective 06/23/2023 The patient was seen and examined in medical floor She remains pleasantly confused Does not have any acute distress at rest and denies any significant symptoms 06/24/2023 The patient was seen and examined in medical floor in presence of the She remains pleasantly confused but does not have any acute distress Sodium remains low at 126 She has been eating and drinking reasonably Review of Systems Review of Systems: Unobtainable due to cognitive status Physical Exam Physical Exam: Sitting on a chair without any acute distress Constitutional: + ill appearing and average body habitus Eyes: PERRL, conjunctivae normal, anicteric sclerae ENMT: external ear and nose normal, oropharynx normal Neck: trachea midline, no thyromegaly Respiratory: no respiratory distress Auscultation: lungs clear to auscultation bilaterally Cardiovascular: Rate/Rhythm: regular rate and regular rhythm; not tachycardic Heart Sounds: normal S1, normal S2 and + murmur Extremities: no edema Gastrointestinal (Abdomen): Inspection/Auscultation: normal bowel sounds; abdomen not distended Percussion/Palpation: abdomen soft; abdomen nontender Musculoskeletal: No acute arthritis involving any joint Neurologic: Alert and awake. Pleasantly confused. Generally weak Lymphatic: no cervical or axillary lymphadenopathy Results & Data Results & Data Vital Signs (Past 12 Hours) Vital Signs Temp Pulse Resp BP Pulse Ox O2 Del Method 06/24/23 08:36 Room Air 06/24/23 07:42 36.5 C 87 16 150/86 H 98 Room Air Laboratory Results BMP 06/24/23 06:20 Sodium 126 L Potassium 3.5 Chloride 93 L Carbon Dioxide 25 BUN 6 Creatinine 0.37 L Glucose 106 H Calcium 8.9 Medications Administered Current Inpatient Medications Acetaminophen (Acetaminophen 325 Mg Tab) 650 mg PO Q4H PRN PRN Reason: pain/fever Stop: 07/23/23 04:32 Last Admin: 06/23/23 16:13 Dose: 650 mg Calcium Carbonate (Calcium Carbonate 1250mg Tab) 1,250 mg PO DAILY VEL Stop: 07/23/23 08:59 Last Admin: 06/24/23 08:08 Dose: 1,250 mg Fluticasone Propionate (Fluticasone Propionate Na Spr 16 Gm Btl) 2 sprays NA DAILY VEL Stop: 07/23/23 08:59 Last Admin: 06/24/23 08:08 Dose: 2 sprays Heparin Sodium (Porcine) (Heparin Sod 5,000 Unit/0.5 Ml Vial) 5,000 units SQ Q12 VEL Stop: 07/23/23 08:59 Last Admin: 06/24/23 08:09 Dose: 5,000 units Sodium Chloride (Nss 1000ml) 1,000 mls @ 75 mls/hr IV .[id number] VEL Stop: 07/23/23 04:32 Last Admin: 06/24/23 08:13 Dose: 75 mls/hr Lorazepam (Lorazepam 0.5 Mg Tab) 0.5 mg PO BID VEL Stop: 07/23/23 08:59 Last Admin: 06/24/23 08:12 Dose: 0.5 mg Pantoprazole Sodium (Pantoprazole 40 Mg Tab) 40 mg PO DAILY VEL Stop: 07/23/23 08:59 Last Admin: 06/24/23 08:08 Dose: 40 mg Polyethylene Glycol (Polyethylene (Miralax) 17 Gm Pack) 17 gm PO DAILY PRN PRN Reason: Constipation Stop: 07/23/23 04:32 Polyethylene Glycol (Polyethylene (Miralax) 17 Gm Pack) 17 gm PO DAILY VEL Stop: 07/23/23 08:59 Last Admin: 06/24/23 08:08 Dose: 17 gm Sennosides (Senna 8.6 Mg Tab) 17.2 mg PO BID VEL Stop: 07/23/23 08:59 Last Admin: 06/24/23 08:09 Dose: Not Given Sodium Chloride (Sodium Chloride 1 Gm Tablet) 1 gm PO BID VEL Stop: 07/23/23 20:59 Last Admin: 06/24/23 08:08 Dose: 1 gm Trazodone HCl (Trazodone Hcl 50 Mg Tab) 50 mg PO HS VEL Stop: 07/23/23 20:59 Last Admin: 06/23/23 20:19 Dose: 50 mg
[2023-06-24] MEDS: ACETAMINOPHEN 325 MG TAB PO PRN (19:22)
[2023-06-24] MEDS: traZODone HCL 50 MG TAB PO SCH (20:19)
[2023-06-25 06:08] LABS: BUN Creatinine Ratio 19.6 (10-20); Calcium 8.2 mg/dl (8.6-10.3); Creatinine Clr Calc Pharmacy 54.6 ml/min; Est GFR (Non-African American) 94.1 ml/min; Potassium 3.3 mmol/L (3.5-5.1)
[2023-06-25] MEDS: POLYETHYLENE (MIRALAX) 17 GM PACK PO SCH (08:19)
[2023-06-25] MEDS: FLUTICASONE PROPIONATE NA SPR 16 GM BTL SCH (08:19)
[2023-06-25] MEDS: PANTOprazole 40 MG TAB PO SCH (08:19)
[2023-06-25] MEDS: CALCIUM CARBONATE 1250MG TAB PO SCH (08:19)
[2023-06-25] MEDS: SODIUM CHLORIDE 1 GM TABLET PO SCH ×2 (08:19→20:27)
[2023-06-25] MEDS: SENNA 8.6 MG TAB PO SCH ×2 (08:19→20:27)
[2023-06-25] MEDS: HEPARIN SOD 5,000 UNIT/0.5 ML VIAL SQ SCH ×2 (08:19→20:27)
[2023-06-25] MEDS: LORazepam 0.5 MG TAB PO SCH ×2 (08:23→20:29)
[2023-06-25] MEDS: SODIUM CHLORIDE 0.9% 1000ML 1,000 ML IV SCH (11:46)
[2023-06-25] MEDS: ACETAMINOPHEN 325 MG TAB PO PRN ×3 (12:08→20:26)
--- NOTE | 2023-06-25 14:25 | Hospitalist Progress Note ---
Date of Service June 25, 2023 Assessment & Plan (1) Fall: Plan: 77-year-old female past medical significant for moderate dementia as per , GERD, irritable bowel syndrome with constipation and diarrhea, stress incontinence, senile osteoporosis, migraine variant, tympanosclerosis who lives at home with ambulates with a walker and eats regular food as per was brought in because of fall. Fall Probable weakness from hyponatremia and malnutrition Continue PT & OT Appreciate input and recommendation- She will need to go to rehab Hyponatremia-likely secondary to poor intake and drinking too much water for the last few days or weeks as per the Has been drinking much water for the last few days at home Sodium 129 on admission Remains hyponatremic with sodium level of 129 Has been getting small doses of IV fluid with normal saline Will give sodium tablet Sodium level remains low at 126 We will monitor PRP if is still low we will get nephrology involved and the patient may need Lasix with normal saline infusion We will discontinue infusion sodium level has gone up to 130 Advised to take a little extra salt with her meals Severe malnutritionin the setting of multiple chronic illnesses (dementia, IBS, diarrhea) We will get nutrition consult Has been eating and drinking reasonably in the hospital Awaiting nutrition evaluation and recommendation Persistent abdominal pain History of-year-old bowel syndrome with constipation and diarrhea Has been states mostly she has constipation We will get CT abdomen pelvis-mild collecting system dilatation with moderate right hydronephrosis as before No acute pain Dementia Monitor for delirium Pleasantly confused but no acute delirium GERD On omeprazole DVT prophylaxis Heparin subcu Disposition medical floor CODE STATUS full code only if there is real chance of recovery as per Discussed with the in detail Admission and Anticipated Discharge Date Admission Date: June 23, 2023 Subjective 06/23/2023 The patient was seen and examined in medical floor She remains pleasantly confused Does not have any acute distress at rest and denies any significant symptoms 06/24/2023 The patient was seen and examined in medical floor in presence of the She remains pleasantly confused but does not have any acute distress Sodium remains low at 126 She has been eating and drinking reasonably 06/25/2023 The patient was seen and examined in medical floor in presence of the She has been feeling much better today and has been eating and drinking reasonably Sodium level has gone up to 130 Review of Systems Review of Systems: All systems reviewed and are unremarkable except as noted below Physical Exam Physical Exam: Lying in bed comfortably Constitutional: + ill appearing and average body habitus Eyes: PERRL, conjunctivae normal, anicteric sclerae ENMT: external ear and nose normal, oropharynx normal Neck: trachea midline, no thyromegaly Respiratory: no respiratory distress Auscultation: lungs clear to auscultation bilaterally Cardiovascular: Rate/Rhythm: regular rate and regular rhythm; not tachycardic Heart Sounds: normal S1, normal S2 and + murmur Extremities: no edema Gastrointestinal (Abdomen): Inspection/Auscultation: normal bowel sounds; abdomen not distended Percussion/Palpation: abdomen soft; abdomen nontender Musculoskeletal: No acute arthritis involving any joint Neurologic: Alert and awake. Pleasantly confused. Generally weak and lethargic Lymphatic: no cervical or axillary lymphadenopathy Results & Data Results & Data Vital Signs (Past 12 Hours) Vital Signs Temp Pulse Resp BP Pulse Ox O2 Del Method 06/25/23 11:18 Room Air 06/25/23 07:37 36.4 C L 83 16 144/84 H 96 Room Air Laboratory Results [facility] 06/25/23 05:15 Sodium 130 L Potassium 3.3 L Chloride 102 Carbon Dioxide 21 BUN 10 Creatinine 0.51 L Glucose 86 Calcium 8.2 L Medications Administered Current Inpatient Medications Acetaminophen (Acetaminophen 325 Mg Tab) 650 mg PO Q4H PRN PRN Reason: pain/fever Stop: 07/23/23 04:32 Last Admin: 06/25/23 12:08 Dose: 650 mg Calcium Carbonate (Calcium Carbonate 1250mg Tab) 1,250 mg PO DAILY VEL Stop: 07/23/23 08:59 Last Admin: 06/25/23 08:19 Dose: 1,250 mg Fluticasone Propionate (Fluticasone Propionate Na Spr 16 Gm Btl) 2 sprays NA DAILY VEL Stop: 07/23/23 08:59 Last Admin: 06/25/23 08:19 Dose: 2 sprays Heparin Sodium (Porcine) (Heparin Sod 5,000 Unit/0.5 Ml Vial) 5,000 units SQ Q12 VEL Stop: 07/23/23 08:59 Last Admin: 06/25/23 08:19 Dose: 5,000 units Lorazepam (Lorazepam 0.5 Mg Tab) 0.5 mg PO BID VEL Stop: 07/23/23 08:59 Last Admin: 06/25/23 08:23 Dose: 0.5 mg Pantoprazole Sodium (Pantoprazole 40 Mg Tab) 40 mg PO DAILY VEL Stop: 07/23/23 08:59 Last Admin: 06/25/23 08:19 Dose: 40 mg Polyethylene Glycol (Polyethylene (Miralax) 17 Gm Pack) 17 gm PO DAILY PRN PRN Reason: Constipation Stop: 07/23/23 04:32 Polyethylene Glycol (Polyethylene (Miralax) 17 Gm Pack) 17 gm PO DAILY VEL Stop: 07/23/23 08:59 Last Admin: 06/25/23 08:19 Dose: 17 gm Sennosides (Senna 8.6 Mg Tab) 17.2 mg PO BID VEL Stop: 07/23/23 08:59 Last Admin: 06/25/23 08:19 Dose: 17.2 mg Sodium Chloride (Sodium Chloride 1 Gm Tablet) 1 gm PO BID VEL Stop: 07/23/23 20:59 Last Admin: 06/25/23 08:19 Dose: 1 gm Trazodone HCl (Trazodone Hcl 50 Mg Tab) 50 mg PO HS VEL Stop: 07/23/23 20:59 Last Admin: 06/24/23 20:19 Dose: 50 mg
[2023-06-25] MEDS: traZODone HCL 50 MG TAB PO SCH (20:28)
[2023-06-26 07:17] LABS: Basophils # (auto) 0.09 K/uL (0-0.2); Basophils % (auto) 1.2 %; Eosinophils % (auto) 1.3 %; Hematocrit (blood only) 36.8 % (37.0-47.0); Immature Granulocytes # (auto) 0.02 K/uL (0.01-0.20); Immature Granulocytes % (auto) 0.3 %; Lymphocytes # (auto) 1.05 K/uL (1.2-3.4); Mean Corpuscular Hemoglobin 31.6 pg (25.0-34.0); Mean Corpuscular Hgb Conc 35.3 g/dL (32.0-36.0); Mean Corpuscular Volume 89.5 fL (80.0-100.0); Mean Platelet Volume 9.5 fL (9.4-12.4); Monocytes # (auto) 0.67 K/uL (0.11-0.59); Monocytes % (auto) 8.9 %; Neutrophils # (auto) 5.57 K/uL (1.40-6.50); Neutrophils % (auto) 74.3 %; Platelet Count 300 K/uL (130-400); RDW Coefficient of Variation 11.9 % (11.5-14.5); RDW Standard Deviation 39.1 fL (36.4-46.3); Red Blood Count 4.11 M/uL (4.20-5.40)
[2023-06-26 07:42] LABS: BUN Creatinine Ratio 14.3 (10-20); Calcium 8.5 mg/dl (8.6-10.3); Creatinine Clr Calc Pharmacy 66.3 ml/min; Est GFR (African American) 116.2 ml/min; Est GFR (Non-African American) 100.3 ml/min; Magnesium 1.9 mg/dl (1.7-2.4)
[2023-06-26] MEDS: PANTOprazole 40 MG TAB PO SCH (08:24)
[2023-06-26] MEDS: CALCIUM CARBONATE 1250MG TAB PO SCH (08:24)
[2023-06-26] MEDS: SENNA 8.6 MG TAB PO SCH ×2 (08:24→20:51)
[2023-06-26] MEDS: SODIUM CHLORIDE 1 GM TABLET PO SCH ×2 (08:25→20:52)
[2023-06-26] MEDS: FLUTICASONE PROPIONATE NA SPR 16 GM BTL SCH (08:25)
[2023-06-26] MEDS: POLYETHYLENE (MIRALAX) 17 GM PACK PO SCH (08:25)
[2023-06-26] MEDS: HEPARIN SOD 5,000 UNIT/0.5 ML VIAL SQ SCH ×2 (08:25→20:51)
[2023-06-26] MEDS: LORazepam 0.5 MG TAB PO SCH ×2 (08:29→20:51)
[2023-06-26] MEDS: ACETAMINOPHEN 325 MG TAB PO PRN (10:24)
--- NOTE | 2023-06-26 13:39 | Hospitalist Progress Note ---
Date of Service June 26, 2023 Assessment & Plan (1) Fall: Plan: 77-year-old female past medical significant for moderate dementia as per , GERD, irritable bowel syndrome with constipation and diarrhea, stress incontinence, senile osteoporosis, migraine variant, tympanosclerosis who lives at home with ambulates with a walker and eats regular food as per was brought in because of fall. Fall Probable weakness from hyponatremia and malnutrition Continue PT & OT Appreciate input and recommendation- She will need to go to rehab Hyponatremia-likely secondary to poor intake and drinking too much water for the last few days or weeks as per the Has been drinking much water for the last few days at home Sodium 129 on admission Remains hyponatremic with sodium level of 129 Has been getting small doses of IV fluid with normal saline Will give sodium tablet Sodium level remains low at 126 We will monitor PRP if is still low we will get nephrology involved and the patient may need Lasix with normal saline infusion We will discontinue infusion sodium level has gone up to 130 Advised to take a little extra salt with her meals When it remains almost corrected today it is 133 She was advised to take extra salt in her meals Severe malnutritionin the setting of multiple chronic illnesses (dementia, IBS, diarrhea) We will get nutrition consult Has been eating and drinking reasonably in the hospital Awaiting nutrition evaluation and recommendation Persistent abdominal pain History of-year-old bowel syndrome with constipation and diarrhea Has been states mostly she has constipation We will get CT abdomen pelvis-mild collecting system dilatation with moderate right hydronephrosis as before No acute pain Dementia Monitor for delirium Pleasantly confused but no acute delirium GERD On omeprazole DVT prophylaxis Heparin subcu Disposition medical floor CODE STATUS full code only if there is real chance of recovery as per Discussed with the in detail Admission and Anticipated Discharge Date Admission Date: June 23, 2023 Subjective 06/23/2023 The patient was seen and examined in medical floor She remains pleasantly confused Does not have any acute distress at rest and denies any significant symptoms 06/24/2023 The patient was seen and examined in medical floor in presence of the She remains pleasantly confused but does not have any acute distress Sodium remains low at 126 She has been eating and drinking reasonably 06/25/2023 The patient was seen and examined in medical floor in presence of the She has been feeling much better today and has been eating and drinking reasonably Sodium level has gone up to 130 06/26/2023 The patient was seen and examined in medical floor in presence of the She remains stable and has been trying to eat and drink some Has not had any dietary evaluation yet We will get PT and OT evaluation and most likely will need placement Review of Systems Review of Systems: All systems reviewed and are unremarkable except as noted below Physical Exam Physical Exam: Lying in bed comfortably Constitutional: + ill appearing and average body habitus Eyes: PERRL, conjunctivae normal, anicteric sclerae ENMT: external ear and nose normal, oropharynx normal Neck: trachea midline, no thyromegaly Respiratory: no respiratory distress Auscultation: lungs clear to auscultation bilaterally Cardiovascular: Rate/Rhythm: regular rate and regular rhythm; not tachycardic Heart Sounds: normal S1, normal S2 and + murmur Extremities: no edema Gastrointestinal (Abdomen): Inspection/Auscultation: normal bowel sounds; abdomen not distended Percussion/Palpation: abdomen soft; abdomen nontender Musculoskeletal: No acute arthritis involving any joint Neurologic: normal touch/pain/proprioception and moves all extremities; no f ocal motor deficits Lymphatic: no cervical or axillary lymphadenopathy Results & Data Results & Data Vital Signs (Past 12 Hours) Vital Signs Temp Pulse Resp BP Pulse Ox O2 Del Method 06/26/23 07:48 36.4 C L 97 H 14 148/100 H 97 Room Air Laboratory Results Short CBC 06/26/23 Range/Units 06:21 WBC 7.50 (4.8-10.8) K/ul Hgb 13.0 (12.0-16.0) g/dl Hct 36.8 L (37.0-47.0) % Plt Count 300 (130-400) K/uL BMP 06/26/23 06:21 Sodium 133 L Potassium 3.0 L Chloride 100 Carbon Dioxide 27 BUN 6 Creatinine 0.42 L Glucose 95 Calcium 8.5 L Medications Administered Current Inpatient Medications Acetaminophen (Acetaminophen 325 Mg Tab) 650 mg PO Q4H PRN PRN Reason: pain/fever Stop: 07/23/23 04:32 Last Admin: 06/26/23 10:24 Dose: 650 mg Calcium Carbonate (Calcium Carbonate 1250mg Tab) 1,250 mg PO DAILY VEL Stop: 07/23/23 08:59 Last Admin: 06/26/23 08:24 Dose: 1,250 mg Fluticasone Propionate (Fluticasone Propionate Na Spr 16 Gm Btl) 2 sprays NA DAILY VEL Stop: 07/23/23 08:59 Last Admin: 06/26/23 08:25 Dose: 2 sprays Heparin Sodium (Porcine) (Heparin Sod 5,000 Unit/0.5 Ml Vial) 5,000 units SQ Q12 VEL Stop: 07/23/23 08:59 Last Admin: 06/26/23 08:25 Dose: 5,000 units Lorazepam (Lorazepam 0.5 Mg Tab) 0.5 mg PO BID VEL Stop: 07/23/23 08:59 Last Admin: 06/26/23 08:29 Dose: 0.5 mg Pantoprazole Sodium (Pantoprazole 40 Mg Tab) 40 mg PO DAILY VEL Stop: 07/23/23 08:59 Last Admin: 06/26/23 08:24 Dose: 40 mg Polyethylene Glycol (Polyethylene (Miralax) 17 Gm Pack) 17 gm PO DAILY PRN PRN Reason: Constipation Stop: 07/23/23 04:32 Polyethylene Glycol (Polyethylene (Miralax) 17 Gm Pack) 17 gm PO DAILY VEL Stop: 07/23/23 08:59 Last Admin: 06/26/23 08:25 Dose: 17 gm Sennosides (Senna 8.6 Mg Tab) 17.2 mg PO BID VEL Stop: 07/23/23 08:59 Last Admin: 06/26/23 08:24 Dose: 17.2 mg Sodium Chloride (Sodium Chloride 1 Gm Tablet) 1 gm PO BID VEL Stop: 07/23/23 20:59 Last Admin: 06/26/23 08:25 Dose: 1 gm Trazodone HCl (Trazodone Hcl 50 Mg Tab) 50 mg PO HS VEL Stop: 07/23/23 20:59 Last Admin: 06/25/23 20:28 Dose: 50 mg
[2023-06-26] MEDS ORDERED: POTASSIUM CHLORIDE CRTAB 20 MEQ TABCR PO STA (14:16)
[2023-06-26] MEDS ORDERED: POTASSIUM ACETATE/NSS 10 MEQ/105 ML BAG IV SCH (14:30)
[2023-06-26] MEDS: POTASSIUM ACETATE 10 MEQ in 0.9 % SODIUM CHLORIDE 100 ML IV SCH ×2 (16:02→17:07)
[2023-06-26] MEDS: traZODone HCL 50 MG TAB PO SCH (20:52)
[2023-06-27 06:49] LABS: BUN Creatinine Ratio 16.7 (10-20); Calcium 9.2 mg/dl (8.6-10.3); Creatinine Clr Calc Pharmacy 66.3 ml/min; Est GFR (African American) 116.2 ml/min; Est GFR (Non-African American) 100.3 ml/min; Potassium 3.9 mmol/L (3.5-5.1)
[2023-06-27] MEDS: LORazepam 0.5 MG TAB PO SCH ×2 (08:19→20:50)
[2023-06-27] MEDS: SENNA 8.6 MG TAB PO SCH ×2 (08:20→20:50)
[2023-06-27] MEDS: CALCIUM CARBONATE 1250MG TAB PO SCH (08:20)
[2023-06-27] MEDS: SODIUM CHLORIDE 1 GM TABLET PO SCH ×2 (08:20→20:50)
[2023-06-27] MEDS: HEPARIN SOD 5,000 UNIT/0.5 ML VIAL SQ SCH ×2 (08:20→20:50)
[2023-06-27] MEDS: FLUTICASONE PROPIONATE NA SPR 16 GM BTL SCH (08:20)
[2023-06-27] MEDS: PANTOprazole 40 MG TAB PO SCH (08:20)
[2023-06-27] MEDS: POLYETHYLENE (MIRALAX) 17 GM PACK PO SCH (08:25)
[2023-06-27] MEDS: ACETAMINOPHEN 325 MG TAB PO PRN (11:28)
--- NOTE | 2023-06-27 16:29 | Hospitalist Progress Note ---
Date of Service June 27, 2023 Assessment & Plan (1) Fall: Plan: 77-year-old female past medical significant for moderate dementia as per , GERD, irritable bowel syndrome with constipation and diarrhea, stress incontinence, senile osteoporosis, migraine variant, tympanosclerosis who lives at home with ambulates with a walker and eats regular food as per was brought in because of fall. Fall Probable weakness from hyponatremia and malnutrition Continue PT & OT Appreciate input and recommendation- She will need to go to rehab Waiting to be placed Hyponatremia-likely secondary to poor intake and drinking too much water for the last few days or weeks as per the Has been drinking much water for the last few days at home Sodium 129 on admission Remains hyponatremic with sodium level of 129 Has been getting small doses of IV fluid with normal saline Will give sodium tablet Sodium level remains low at 126 We will monitor PRP if is still low we will get nephrology involved and the patient may need Lasix with normal saline infusion We will discontinue infusion sodium level has gone up to 130 Advised to take a little extra salt with her meals When it remains almost corrected today it is 133 She was advised to take extra salt in her meals Her sodium level is 133 today and she was strongly advised to take extra salt with her maintenance Severe malnutritionin the setting of multiple chronic illnesses (dementia, IBS, diarrhea) We will get nutrition consult Has been eating and drinking reasonably in the hospital Awaiting nutrition evaluation and recommendation Appreciate dietitian input and recommendation Persistent abdominal pain History of-year-old bowel syndrome with constipation and diarrhea Has been states mostly she has constipation We will get CT abdomen pelvis-mild collecting system dilatation with moderate right hydronephrosis as before No acute pain Dementia Monitor for delirium Pleasantly confused but no acute delirium Remains pleasantly confused GERD On omeprazole DVT prophylaxis Heparin subcu Disposition medical floor CODE STATUS full code only if there is real chance of recovery as per Discussed with the in detail Admission and Anticipated Discharge Date Admission Date: June 23, 2023 Subjective 06/23/2023 The patient was seen and examined in medical floor She remains pleasantly confused Does not have any acute distress at rest and denies any significant symptoms 06/24/2023 The patient was seen and examined in medical floor in presence of the She remains pleasantly confused but does not have any acute distress Sodium remains low at 126 She has been eating and drinking reasonably 06/25/2023 The patient was seen and examined in medical floor in presence of the She has been feeling much better today and has been eating and drinking reasonably Sodium level has gone up to 130 06/26/2023 The patient was seen and examined in medical floor in presence of the She remains stable and has been trying to eat and drink some Has not had any dietary evaluation yet We will get PT and OT evaluation and most likely will need placement 06/27/2023 The patient was seen and examined in medical floor She has been stable and denies any symptoms Has been getting physical therapy and trying to eat and drink more Review of Systems Review of Systems: All systems reviewed and are unremarkable except as noted below Physical Exam Physical Exam: Lying in bed comfortably Constitutional: + ill appearing and average body habitus Eyes: PERRL, conjunctivae normal, anicteric sclerae ENMT: external ear and nose normal, oropharynx normal Neck: trachea midline, no thyromegaly Respiratory: no respiratory distress Auscultation: lungs clear to auscultation bilaterally Cardiovascular: Rate/Rhythm: regular rate and regular rhythm; not tachycardic Heart Sounds: normal S1, normal S2 and + murmur Extremities: no edema Gastrointestinal (Abdomen): Inspection/Auscultation: normal bowel sounds; abdomen not distended Percussion/Palpation: abdomen soft; abdomen nontender Musculoskeletal: No acute arthritis involving any of the joint Neurologic: normal touch/pain/proprioception and moves all extremities; no focal motor deficits Lymphatic: no cervical or axillary lymphadenopathy Results & Data Results & Data Vital Signs (Past 12 Hours) Vital Signs Temp Pulse Resp BP BP Pulse Ox O2 Del Method 06/27/23 15:20 36.8 C 92 H 15 141/97 H 97 Room Air 06/27/23 07:47 36.6 C 97 H 17 137/87 96 Room Air Laboratory Results [facility] 06/27/23 05:55 Sodium 133 L Potassium 3.9 D Chloride 99 Carbon Dioxide 27 BUN 7 Creatinine 0.42 L Glucose 98 Calcium 9.2 Medications Administered Current Inpatient Medications Acetaminophen (Acetaminophen 325 Mg Tab) 650 mg PO Q4H PRN PRN Reason: pain/fever Stop: 07/23/23 04:32 Last Admin: 06/27/23 11:28 Dose: 650 mg COVID-19 Vaccine mRNA LNP-S Bivalent (MOD) PF (Covid19 Bivalent Vaccine (YellowSchedule) 30mcg/0.3ml Sdv) 0.3 ml IM .ONCE ONE Stop: 06/27/23 15:55 Calcium Carbonate (Calcium Carbonate 1250mg Tab) 1,250 mg PO DAILY VEL Stop: 07/23/23 08:59 Last Admin: 06/27/23 08:20 Dose: 1,250 mg Fluticasone Propionate (Fluticasone Propionate Na Spr 16 Gm Btl) 2 sprays NA DAILY VEL Stop: 07/23/23 08:59 Last Admin: 06/27/23 08:20 Dose: 2 sprays Heparin Sodium (Porcine) (Heparin Sod 5,000 Unit/0.5 Ml Vial) 5,000 units SQ Q12 VEL Stop: 07/23/23 08:59 Last Admin: 06/27/23 08:20 Dose: 5,000 units Lorazepam (Lorazepam 0.5 Mg Tab) 0.5 mg PO BID VEL Stop: 07/23/23 08:59 Last Admin: 06/27/23 08:19 Dose: 0.5 mg Pantoprazole Sodium (Pantoprazole 40 Mg Tab) 40 mg PO DAILY VEL Stop: 07/23/23 08:59 Last Admin: 06/27/23 08:20 Dose: 40 mg Polyethylene Glycol (Polyethylene (Miralax) 17 Gm Pack) 17 gm PO DAILY PRN PRN Reason: Constipation Stop: 07/23/23 04:32 Polyethylene Glycol (Polyethylene (Miralax) 17 Gm Pack) 17 gm PO DAILY VEL Stop: 07/23/23 08:59 Last Admin: 06/27/23 08:25 Dose: 17 gm Sennosides (Senna 8.6 Mg Tab) 17.2 mg PO BID VEL Stop: 07/23/23 08:59 Last Admin: 06/27/23 08:20 Dose: 17.2 mg Sodium Chloride (Sodium Chloride 1 Gm Tablet) 1 gm PO BID VEL Stop: 07/23/23 20:59 Last Admin: 06/27/23 08:20 Dose: 1 gm Trazodone HCl (Trazodone Hcl 50 Mg Tab) 50 mg PO HS VEL Stop: 07/23/23 20:59 Last Admin: 06/26/23 20:52 Dose: 50 mg
[2023-06-27] MEDS: traZODone HCL 50 MG TAB PO SCH (20:50)
[2023-06-28] MEDS: LORazepam 0.5 MG TAB PO SCH (08:34)
[2023-06-28] MEDS: PANTOprazole 40 MG TAB PO SCH (08:35)
[2023-06-28] MEDS: CALCIUM CARBONATE 1250MG TAB PO SCH (08:35)
[2023-06-28] MEDS: SENNA 8.6 MG TAB PO SCH (08:36)
[2023-06-28] MEDS: SODIUM CHLORIDE 1 GM TABLET PO SCH (08:36)
[2023-06-28] MEDS: HEPARIN SOD 5,000 UNIT/0.5 ML VIAL SQ SCH (08:37)
[2023-06-28] MEDS: FLUTICASONE PROPIONATE NA SPR 16 GM BTL SCH (08:37)
[2023-06-28] MEDS: POLYETHYLENE (MIRALAX) 17 GM PACK PO SCH (08:37)
[2023-06-28 08:41] LABS: Appearance Urine Turbid (Clear); Bacteria Urine Automated 4+ (Negative); Bilirubin Urine Negative (Negative); Blood Urine Negative (Negative); Color Urine Dark Yellow; Epithelial Cell Urine Auto 20-30 /lpf (0-5); Glucose Urine UA Negative (Negative); Ketones Urine 1+ (Negative); Leukocyte Esterase Urine 2+ (Negative); Nitrite Urine Negative (Negative); Specific Gravity Urine 1.016 (1.000-1.030); Urobilinogen Urine Negative (Negative); WBC Urine Automated >30 /hpf (0-5); pH Urine 7.5 (4.5-7.5)
[2023-06-28 08:48] LABS: Protein Urine Trace (Negative)
[2023-06-28 08:59] LABS: RBC Urine Automated 0-4 /hpf (0-4)
[2023-06-28] MEDS ORDERED: COVID19 BIVALENT Vaccine (Pfizer) 30mcg/0.3mL SDV IM ONE (09:00)
[2023-06-28] MEDS ORDERED: amLODIPine BESYLATE 5 MG TAB PO SCH (09:45)
[2023-06-28] MEDS ORDERED: cefTRIAXone SODIUM 2,000 MG in DEXTROSE 5% 50 ML IV SCH (10:00)
[2023-06-28] MEDS: ACETAMINOPHEN 325 MG TAB PO PRN (10:34)
[2023-06-28 10:48] LABS: Calcium 9.6 mg/dl (8.6-10.3); Potassium 3.5 mmol/L (3.5-5.1)
[2023-06-28 10:54] LABS: BUN Creatinine Ratio 23.4 (10-20); Creatinine Clr Calc Pharmacy 59.3 ml/min; Est GFR (Non-African American) 96.6 ml/min
--- NOTE | 2023-06-28 11:41 | Hospitalist Progress Note ---
Date of Service June 28, 2023 Assessment & Plan (1) Fall: Plan: 77-year-old female past medical significant for moderate dementia as per , GERD, irritable bowel syndrome with constipation and diarrhea, stress incontinence, senile osteoporosis, migraine variant, tympanosclerosis who lives at home with ambulates with a walker and eats regular food as per was brought in because of fall. Fall Probable weakness from hyponatremia and malnutrition Continue PT & OT Appreciate input and recommendation- She will need to go to rehab Waiting to be placed Will be discharged to [facility] this afternoon Hyponatremia-likely secondary to poor intake and drinking too much water for the last few days or weeks as per the Has been drinking much water for the last few days at home Sodium 129 on admission Remains hyponatremic with sodium level of 129 Has been getting small doses of IV fluid with normal saline Will give sodium tablet Sodium level remains low at 126 We will monitor PRP if is still low we will get nephrology involved and the patient may need Lasix with normal saline infusion We will discontinue infusion sodium level has gone up to 130 Advised to take a little extra salt with her meals When it remains almost corrected today it is 133 She was advised to take extra salt in her meals Her sodium level is 133 today and she was strongly advised to take extra salt with her maintenance Remains stable and was advised to take extra salt with her meals UTI Not having any symptoms Cultures pending Received 1 dose of ceftriaxone Will continue with Keflex 500 mg twice daily from tomorrow for a total of 5 days Severe malnutritionin the setting of multiple chronic illnesses (dementia, IBS, diarrhea) We will get nutrition consult Has been eating and drinking reasonably in the hospital Awaiting nutrition evaluation and recommendation Appreciate dietitian input and recommendation Strongly advised to take her meals regularly Persistent abdominal pain History of-year-old bowel syndrome with constipation and diarrhea Has been states mostly she has constipation We will get CT abdomen pelvis-mild collecting system dilatation with moderate right hydronephrosis as before No acute pain Dementia Monitor for delirium Pleasantly confused but no acute delirium Remains pleasantly confused GERD On omeprazole DVT prophylaxis Heparin subcu Disposition medical floor CODE STATUS full code only if there is real chance of recovery as per Discussed with the in detail Admission and Anticipated Discharge Date Admission Date: June 23, 2023 Subjective 06/23/2023 The patient was seen and examined in medical floor She remains pleasantly confused Does not have any acute distress at rest and denies any significant symptoms 06/24/2023 The patient was seen and examined in medical floor in presence of the She remains pleasantly confused but does not have any acute distress Sodium remains low at 126 She has been eating and drinking reasonably 06/25/2023 The patient was seen and examined in medical floor in presence of the She has been feeling much better today and has been eating and drinking reasonably Sodium level has gone up to 130 06/26/2023 The patient was seen and examined in medical floor in presence of the She remains stable and has been trying to eat and drink some Has not had any dietary evaluation yet We will get PT and OT evaluation and most likely will need placement 06/27/2023 The patient was seen and examined in medical floor She has been stable and denies any symptoms Has been getting physical therapy and trying to eat and drink more 06/28/2023 The patient was seen and examined in the medical floor in presence of the She has been feeling much better and denies any symptoms Her blood pressure is noted to be high but that is usual according to the and she does not require any medications for that No urinary symptoms but will be treated for infection Review of Systems Review of Systems: All systems reviewed and are unremarkable except as noted below Physical Exam Physical Exam: Lying in bed comfortably Constitutional: + ill appearing and average body habitus Eyes: PERRL, conjunctivae normal, anicteric sclerae ENMT: external ear and nose normal, oropharynx normal Neck: trachea midline, no thyromegaly Respiratory: no respiratory distress Auscultation: lungs clear to auscultation bilaterally Cardiovascular: Rate/Rhythm: regular rate and regular rhythm; not tachycardic Heart Sounds: normal S1, normal S2 and + murmur Extremities: no edema Gastrointestinal (Abdomen): Inspection/Auscultation: normal bowel sounds; abdomen not distended Percussion/Palpation: abdomen soft; abdomen nontender Neurologic: normal touch/pain/proprioception and moves all extremities; no focal motor deficits Lymphatic: no cervical or axillary lymphadenopathy Results & Data Results & Data Vital Signs (Past 12 Hours) Vital Signs Temp Pulse Resp BP BP Pulse Ox O2 Del Method 06/28/23 07:09 36.9 C 106 H 16 164/104 H 163/98 H 99 Room Air Laboratory Results [facility] 06/28/23 09:41 Sodium 133 L Potassium 3.5 Chloride 99 Carbon Dioxide 25 BUN 11 Creatinine 0.47 L Glucose 118 H Calcium 9.6 Urine 06/28/23 Range/Units 08:12 Urine Color Dark Yellow Urine Appearance Turbid A (Clear) Urine pH 7.5 (4.5-7.5) Ur Specific [place] 1.016 (1.000-1.030) Urine Protein Trace H (Negative) Urine Glucose (UA) Negative (Negative) Medications Administered Current Inpatient Medications Acetaminophen (Acetaminophen 325 Mg Tab) 650 mg PO Q4H PRN PRN Reason: pain/fever Stop: 07/23/23 04:32 Last Admin: 06/28/23 10:34 Dose: 650 mg Amlodipine Besylate (Amlodipine Besylate 5 Mg Tab) 5 mg PO QAM [facility] Stop: 07/28/23 09:44 Last Admin: 06/28/23 10:34 Dose: 5 mg Calcium Carbonate (Calcium Carbonate 1250mg Tab) 1,250 mg PO DAILY [facility] Stop: 07/23/23 08:59 Last Admin: 06/28/23 08:35 Dose: 1,250 mg Fluticasone Propionate (Fluticasone Propionate Na Spr 16 Gm Btl) 2 sprays NA DAILY [facility] Stop: 07/23/23 08:59 Last Admin: 06/28/23 08:37 Dose: 2 sprays Heparin Sodium (Porcine) (Heparin Sod 5,000 Unit/0.5 Ml Vial) 5,000 units SQ Q12 [facility] Stop: 07/23/23 08:59 Last Admin: 06/28/23 08:37 Dose: 5,000 units Ceftriaxone Sodium 2,000 mg/ (Dextrose) 70 mls @ 100 mls/hr IV Q24H [facility]; Protocol Stop: 07/03/23 09:44 Last Admin: 06/28/23 10:34 Dose: 100 mls/hr Lorazepam (Lorazepam 0.5 Mg Tab) 0.5 mg PO BID [facility] Stop: 07/23/23 08:59 Last Admin: 06/28/23 08:34 Dose: 0.5 mg Pantoprazole Sodium (Pantoprazole 40 Mg Tab) 40 mg PO DAILY [facility] Stop: 07/23/23 08:59 Last Admin: 06/28/23 08:35 Dose: 40 mg Polyethylene Glycol (Polyethylene (Miralax) 17 Gm Pack) 17 gm PO DAILY PRN PRN Reason: Constipation Stop: 07/23/23 04:32 Polyethylene Glycol (Polyethylene (Miralax) 17 Gm Pack) 17 gm PO DAILY [facility] Stop: 07/23/23 08:59 Last Admin: 06/28/23 08:37 Dose: 17 gm Sennosides (Senna 8.6 Mg Tab) 17.2 mg PO BID [facility] Stop: 07/23/23 08:59 Last Admin: 06/28/23 08:36 Dose: 17.2 mg Sodium Chloride (Sodium Chloride 1 Gm Tablet) 1 gm PO BID [facility] Stop: 07/23/23 20:59 Last Admin: 06/28/23 08:36 Dose: 1 gm Trazodone HCl (Trazodone Hcl 50 Mg Tab) 50 mg PO HS [facility] Stop: 07/23/23 20:59 Last Admin: 06/27/23 20:50 Dose: 50 mg
--- NOTE | 2023-06-28 17:58 | Discharge Summary ---
Date of Service June 28, 2023 Admission HPI Per Admitting Provider 77-year-old female past medical significant for moderate dementia as per , GERD, irritable bowel syndrome with constipation and diarrhea, stress incontinence, senile osteoporosis, migraine variant, tympanosclerosis who lives at home with ambulates with a walker and eats regular food as per was brought in because of fall. heard patient fell in the kitchen seems hit her head but no loss of consciousness. In the ER imaging studies are okay but labs showed sodium of 129. As per patient has poor appetite and she is losing weight and she lost over 14 pounds in last 6 months. She has a constant abdominal pain. Constipated most of the times and sometimes has to use [employer]. Has been requesting CT scan of abdomen to check for any blockages. No recent fevers, no cough, no headaches. No chest pain or shortness of breath. Has some nausea. Has chronic back pain and hip pains. states she has sundowning and gets confusion and sometimes agitated in the night. was worried about UTI for the fall today but UA came back negative . Admission Exam Per Admitting Provider Physical Exam: General- Not in distress, Cachectic Head- atraumatic Eyes- PERRLA ENT- oropharynx clear Neck- supple, no JVD, Lungs- clear to auscultation and percussion Heart- regular rhythm; no murmur, no gallop, no rub appreciated Abdomen- normal bowel sounds, soft, diffuse tender no distension Extremities- no pretibial edema, no erythema Neuro- alert, oriented x 2; PERRL, no facial palsy; no dysarthria;obeys simple commands, moves extremities Skin- warm & dry Principal Diagnosis Hyponatremia, malnutrition, UTI, dementia Discharge Exam Lying in bed comfortably Constitutional + ill appearing and average body habitus Eyes PERRL, conjunctivae normal, anicteric sclerae ENMT external ear and nose normal, oropharynx normal Neck trachea midline, no thyromegaly Respiratory no respiratory distress Auscultation: lungs clear to auscultation bilaterally Cardiovascular Rate/Rhythm: regular rate and regular rhythm; not tachycardic Heart Sounds: normal S1, normal S2 and + murmur Extremities: no edema Gastrointestinal (Abdomen) Inspection/Auscultation: normal bowel sounds; abdomen not distended Percussion/Palpation: abdomen soft; abdomen nontender Neurologic normal touch/pain/proprioception and moves all extremities; no focal motor deficits Lymphatic no cervical or axillary lymphadenopathy Discharge Data Allergies Allergy/AdvReac Type Severity Reaction Status Date / Time codeine AdvReac Intermediate Vomiting Verified 06/22/23 23:52 morphine AdvReac Intermediate Vomiting Verified 06/22/23 23:52 prednisone AdvReac Intermediate Vomiting Verified 06/22/23 23:52 Consultations 06/23/23 01:42 ED Decision to Admit Stat Ordered Studies 06/22/23 23:38 CT cervical spine wo con Stat CT head/brain wo con Stat 06/23/23 02:24 CT Abd and Pelvis [CT abd pelvis IV con only] Routine Hospital Course (1) Fall: 77-year-old female past medical significant for moderate dementia as per , GERD, irritable bowel syndrome with constipation and diarrhea, stress incontinence, senile osteoporosis, migraine variant, tympanosclerosis who lives at home with ambulates with a walker and eats regular food as per was brought in because of fall. Fall Probable weakness from hyponatremia and malnutrition Continue PT & OT Appreciate input and recommendation- She will need to go to rehab Waiting to be placed Will be discharged to [facility] this afternoon Hyponatremia-likely secondary to poor intake and drinking too much water for the last few days or weeks as per the Has been drinking much water for the last few days at home Sodium 129 on admission Remains hyponatremic with sodium level of 129 Has been getting small doses of IV fluid with normal saline Will give sodium tablet Sodium level remains low at 126 We will monitor PRP if is still low we will get nephrology involved and the lia ent may need Lasix with normal saline infusion We will discontinue infusion sodium level has gone up to 130 Advised to take a little extra salt with her meals When it remains almost corrected today it is 133 She was advised to take extra salt in her meals Her sodium level is 133 today and she was strongly advised to take extra salt with her maintenance Remains stable and was advised to take extra salt with her meals UTI Not having any symptoms Cultures pending Received 1 dose of ceftriaxone Will continue with Keflex 500 mg twice daily from tomorrow for a total of 5 days Severe malnutritionin the setting of multiple chronic illnesses (dementia, IBS, diarrhea) We will get nutrition consult Has been eating and drinking reasonably in the hospital Awaiting nutrition evaluation and recommendation Appreciate dietitian input and recommendation Strongly advised to take her meals regularly Persistent abdominal pain History of-year-old bowel syndrome with constipation and diarrhea Has been states mostly she has constipation We will get CT abdomen pelvis-mild collecting system dilatation with moderate right hydronephrosis as before No acute pain Dementia Monitor for delirium Pleasantly confused but no acute delirium Remains pleasantly confused GERD On omeprazole DVT prophylaxis Heparin subcu Disposition medical floor CODE STATUS full code only if there is real chance of recovery as per Discussed with the in detail Total Time Total Time Spent Total Time Spent (In Minutes): 40 minutes Discharge Plan Discharge Items Patient Disposition: Transfer Long Term Fac Reason For Visit: FALL, HYPONATREMIA Discharge Diagnosis: Hyponatremia, malnutrition, UTI, dementia Condition on Discharge: Fair Activity: As commented below Activity Comment: Will need PT and OT Non-emergency contact: Primary Care Provider Call non-emergency contact if: you have any medication questions and your symptoms worsen Follow-up/Referrals: Michelle Mcdowell, DO [Primary Care Provider] - (Please make an appointment with your PCP within 7 days following discharge from the facility) Diet: Regular Diet Comment: Can have a little bit of extra salt with her meals Addtl Attending Provider Instructions: Please take precautions to avoid falls Finish the course of antibiotic Take your medications as advised Try to finish her meals Pending Studies at Discharge: No Stand-Alone Forms: My [facility] Skilled Items Patient informed of condition?: Yes DNR: No Discharge Level of Care: Skilled Communicable Disease: No Discharge Prognosis: Stable Lines: None Urinary Catheter: No Medications and DC Order Prescriptions: New cephalexin 250 mg capsule 250 mg PO BID 7 Days Qty: 14 0RF Continued trazodone 50 mg tablet 50 mg PO HS Prolia 60 mg/mL syringe 60 mg subcut DIRECTED calcium carbonate [Calcium 500] 500 mg calcium (1,250 mg) tablet,chewable 500 mg PO DAILY acetaminophen [Tylenol Extra Strength] 500 mg tablet 500 mg PO Q6H PRN (Reason: Pain) omeprazole 20 mg capsule,delayed release(DR/EC) 20 mg PO DAILY polyethylene glycol 3350 [Miralax] 17 gram/dose Powder 17 g PO DAILY fluticasone propionate 50 mcg/actuation spray,suspension 2 spray INTRANASAL DAILY sennosides [Senna Laxative] 8.6 mg tablet 17.2 mg PO BID lorazepam 0.5 mg tablet 0.5 mg PO BID Qty: 10 0RF Discharge Orders: Discharge Order (Routine); Ordered 06/28/23 Ordered By: Terrence Royal Admission Data Admit Date/Time: 06/23/23 02:23 Attending Provider: Terrence Royal Admit Provider: Chuck Dumas Primary Care Provider: Michelle Mcdowell Other Providers: Chuck Dumas ; [facility] Other Interventions: Discharge Summary Assessment (RN) Last Done: 06/28/23 12:39
== END 2023-06-28 13:13 | DRG 640 ==
LOC: ED 23:14 → 3N 06-23 02:23